=== PATIENT | female | born 1955 | race Caucasian/White ===

== ENCOUNTER → 2022-04-24 | Outpatient (CLI) | payer MEDICARE, OTHER | END | disposition home or self-care (01) | LOC: SHCH 12:59 | PROVIDERS: ATTEND Internal Medicine Cardiovascular Disease | DX: I87.2 Venous insufficiency (chronic) (peripheral) (principal) | CPT/HCPCS: 93970 ==

== ENCOUNTER → 2025-01-20 | Outpatient (CLI) | payer MEDICARE, OTHER ==
--- NOTE | 2025-01-29 10:34 | HMCIMG ---
EXAM: Nuclear Medicine Gastric Emptying Scan. INDICATION: Abdominal pain. REFERENCE EXAMINATION: None. TECHNIQUE: 2.1 mCi of Tc99m sulfur colloid with egg whites, 2 slices of bread/jam, 4 ounces of water. FINDINGS: The transit of radiopharmaceuticals is seen from the stomach into the small bowel. 37% gastric emptying achieved during the period of study. IMPRESSION: Scintigraphic findings suggest gastroparesis. /[place]
== END | disposition home or self-care (01) ==
LOC: RAH 10:41
PROVIDERS: ATTEND Internal Medicine Gastroenterology
DX: R11.0 Nausea (principal); R10.10 Upper abdominal pain, unspecified
CPT/HCPCS: 78264; A9541